=== PATIENT | female | born 1960 | race Caucasian/White ===

== ENCOUNTER 2022-07-06 09:02 | Outpatient (CLI) | payer MEDICAID ==
[2022-07-06 11:41] LABS: BASOPHILS # (AUTO) 0.1 10^3/uL (0.0-0.1); BASOPHILS % (AUTO) 1.4 %; EOSINOPHILS # (AUTO) 0.3 10^3/uL (0.0-0.7); EOSINOPHILS % (AUTO) 3.5 %; HCT - HEMATOCRIT 48.7 % (37.0-47.0); HGB - HEMOGLOBIN 15.5 g/dL (12.0-16.0); LYMPHOCYTES # (AUTO) 3.2 10^3/uL (1.5-3.5); LYMPHOCYTES % (AUTO) 35.4 %; MEAN CORPUSCULAR HEMOGLOBIN 29.5 pg (27.0-31.0); MEAN CORPUSCULAR HGB CONC 31.8 g/dL (32.0-36.0); MEAN CORPUSCULAR VOLUME 92.6 fL (81.0-99.0); MEAN PLATELET VOLUME 11.8 fL (7.9-10.8); MONOCYTES # (AUTO) 0.5 10^3/uL (0.0-1.0); MONOCYTES % (AUTO) 5.6 %; NEUTROPHILS # (AUTO) 4.9 10^3/uL (1.5-6.6); NEUTROPHILS % (AUTO) 53.9 %; PLT - PLATELET COUNT 307 10^3/uL (130-450); RED BLOOD COUNT 5.26 10^6/uL (4.20-5.40); RED CELL DISTRIBUTION WIDTH 14.2 % (12.0-15.0)
[2022-07-06 12:07] LABS: ALBUMIN 3.9 g/dL (3.2-5.5); ALBUMIN/GLOBULIN RATIO 0.9 (1.0-2.2); ALKALINE PHOSPHATASE 72 IU/L (42-121); ALT ALANINE AMINOTRANSFERASE 63 IU/L (10-60); AST ASPARTATE AMINOTRANSFERASE 35 IU/L (10-42); BILIRUBIN,TOTAL 0.6 mg/dL (0.2-1.0); BUN - BLOOD UREA NITROGEN 19 mg/dL (6-20); CALCIUM 9.4 mg/dL (8.5-10.3); CARBON DIOXIDE - CO2 29 mmol/L (21-32); CHLORIDE 103 mmol/L (101-111); CHOL/HDL RATIO 3.7 (<4.4); CHOLESTEROL 255 mg/dL; CREATININE 1.1 mg/dL (0.4-1.0); GFR - MDRD 50 (>89); GLUCOSE 111 mg/dL (70-100); HDL CHOLESTEROL 69 mg/dL; LDL CHOLESTEROL,CALCULATED 158 mg/dL; LDL/HDL RATIO 2.3 (<4.4); POTASSIUM 3.9 mmol/L (3.5-5.0); SODIUM 139 mmol/L (135-145); TOTAL PROTEIN 8.2 g/dL (6.7-8.2); TRIGLYCERIDES 140 mg/dL; VLDL CHOLESTEROL 28 mg/dL
[2022-07-06 12:12] LABS: THYROID STIMULATING HORMONE 1.36 uIU/mL (0.34-5.60)
== END 2022-07-06 09:03 | disposition home or self-care (01) ==
LOC: LAB.N 09:02
PROVIDERS: ATTEND Nurse Practitioner Family
DX: I10 Essential (primary) hypertension (principal)
CPT/HCPCS: 36415; 80050; 80061; 83721

== ENCOUNTER 2024-08-15 21:41 | Inpatient (IN) ==
[2024-08-15 22:13] LABS: BASOPHILS # (AUTO) 0.1 10^3/uL (0.0-0.1); EOSINOPHILS # (AUTO) 0.4 10^3/uL (0.0-0.7); EOSINOPHILS % (AUTO) 3.1 %; HGB - HEMOGLOBIN 14.2 g/dL (12.0-16.0); LYMPHOCYTES # (AUTO) 3.4 10^3/uL (1.5-3.5); LYMPHOCYTES % (AUTO) 25.8 %; MEAN CORPUSCULAR HEMOGLOBIN 28.6 pg (27.0-31.0); MEAN CORPUSCULAR HGB CONC 30.2 g/dL (32.0-36.0); MEAN CORPUSCULAR VOLUME 94.6 fL (81.0-99.0); MEAN PLATELET VOLUME 11.6 fL (7.9-10.8); MONOCYTES # (AUTO) 0.8 10^3/uL (0.0-1.0); MONOCYTES % (AUTO) 5.9 %; NEUTROPHILS # (AUTO) 8.4 10^3/uL (1.5-6.6); NEUTROPHILS % (AUTO) 63.9 %; PLT - PLATELET COUNT 252 10^3/uL (130-450); RED BLOOD COUNT 4.97 10^6/uL (4.20-5.40); RED CELL DISTRIBUTION WIDTH 14.6 % (12.0-15.0); WHITE BLOOD COUNT 13.2 x10^3/uL (4.8-10.8)
--- NOTE | 2024-08-15 22:15 | ED Physician Documentation ---
PD HPI DYSPNEA Stated complaint Stated Complaint: SOA Chief complaint Chief Complaint: Resp Additional information Additional information: BIBA. HPI from EMS, patient. Patient complains of gradual onset of cough, wheezing, dyspnea. Symptoms started earlier this evening without inciting event, constant and steadily worsening. Patient used her albuterol and ipratropium nebs which did not provide adequate relief and thus she called 911. Patient does not use supplemental oxygen at home. Her past medical history includes COPD. EMS arrived to find patient dyspneic and room air pulse ox of 85%. En route to the emergency department EMS administered 125 mg Solu-Medrol IV, 3 albuterol nebs and a duoneb. Also 4mg zofran IV for subsequent nausea. Meds/Allgy Allergies Allergies Allergy/AdvReac Type Severity Reaction Status Date / Time Sulfa (Sulfonamide Allergy Unknown Unknown Verified 08/15/24 21:48 Antibiotics) PFSH Active Problems All Active Problems (Updated 08/15/24 @ 23:13 by Abdirizak Baldwin MD) COPD exacerbation (Acute) Medical History Medical History (Updated 08/15/24 @ 23:13 by Abdirizak Baldwin MD) Hypertension COPD (chronic obstructive pulmonary disease) Surgical History Surgical History (Updated 08/15/24 @ 21:52 by Jaylin Guillory, RN) History of hip replacement History of tonsillectomy History of hysterectomy History of appendectomy Social History Social History (Updated 08/15/24 @ 21:52 by Jaylin Guillory RN) Smoking Status: Current every day smoker Relationship: Do you feel safe in your home environment?: Yes Suffered physical, verbal, emotional, or financial abuse?: No Frequency: Occasional Substance Use: denies use POLST Patient has POLST: No Exam Exam Vital Signs: Vital Signs x48h Temp Pulse Resp BP Pulse Ox O2 Flow Rate 08/15/24 22:53 99 24 96/60 96 4 08/15/24 22:40 89 L 08/15/24 22:22 106 H 32 H 104/61 95 4 08/15/24 22:13 112 H 30 H 93 4 08/15/24 22:12 115 H 34 H 117/81 90 L 2 08/15/24 21:55 2 08/15/24 21:48 115 H 40 H 98 7 08/15/24 21:42 36.7 C 120 H 46 H 169/95 H 85 L Constitutional normal general appearance, distress noted (mild) and (respiratory) and alert Respiratory breath sounds equal bilaterally and wheezing noted (expiratory wheezes) and (inspiratory wheezes) Cardiovascular heart rate abnormal (tachycardic) and regular rhythm noted Gastrointestinal abdomen soft to palpation, nontender to percussion and nondistended Neurology GCS 15 Psychiatry oriented x3, thought process normal, cooperative and affect normal Skin skin color normal Results Vitals Vitals: Vital Signs - 24 hr 08/15/24 21:42 08/15/24 21:48 08/15/24 21:55 Temperature 36.7 C Temperature Source Oral Pulse Rate 120 H 115 H Respiratory Rate 46 H 40 H Blood Pressure 169/95 H O2 Saturation 85 L 98 Oxygen Delivery Method Nasal Cannula O2 Source Room air Oxymizer If not protocol: Oxygen Flow, liters/minute 7 2 Pain Intensity 7 08/15/24 22:12 08/15/24 22:13 08/15/24 22:22 Temperature Temperature Source Pulse Rate 115 H 112 H 106 H Respiratory Rate 34 H 30 H 32 H Blood Pressure 117/81 104/61 O2 Saturation 90 L 93 95 Oxygen Delivery Method O2 Source Nasal cannula Nasal cannula Nasal cannula If not protocol: Oxygen Flow, liters/minute 2 4 4 Pain Intensity 08/15/24 22:40 08/15/24 22:53 Temperature Temperature Source Pulse Rate 99 Respiratory Rate 24 Blood Pressure 96/60 O2 Saturation 89 L 96 Oxygen Delivery Method O2 Source Nasal cannula If not protocol: Oxygen Flow, liters/minute 4 Pain Intensity Oxygen O2 Source Nasal cannula EKG (time done) 21:43: EKG releavant findings:: EKG personally interpreted by author of this note. Relevant findings are: Rate: Rate (enter#) (115) and Tachy Rhythm: Sinus tachycardia and Normal P waves Mylo: RAD Intervals: Normal NC QRS: QRS normal Ischemia: Normal ST segments Labs Labs: Laboratory Tests 08/15/24 22:08 WBC 13.2 H RBC 4.97 Hgb 14.2 Hct 47.0 MCV 94.6 MCH 28.6 MCHC 30.2 L RDW 14.6 Plt Count 252 MPV 11.6 H Neut # (Auto) 8.4 H Lymph # (Auto) 3.4 [place] # (Auto) 0.8 Eos # (Auto) 0.4 Baso # (Auto) 0.1 Absolute Nucleated RBC 0.00 Nucleated RBC % 0.0 Sodium 139 Potassium 3.5 Chloride 106 Carbon Dioxide 24 Anion Gap 9.0 BUN 13 Creatinine 0.9 Estimated GFR (MDRD) 63 L Glucose 143 H Calcium 8.7 Total Bilirubin 0.4 AST 25 ALT 38 Alkaline Phosphatase 75 Troponin I High Sens 4.7 Total Protein 7.3 Albumin 4.1 Globulin 3.2 Albumin/Globulin Ratio 1.3 Lipase 21 Rads (name of study) chest xray: Relevant Findings:: Prelim report reviewed and See rad report PD Medical Decision Making ED course Complexity details: reviewed results, re-evaluated patient, considered differential and d/w patient ED course: No concerning findings on CBC, ER abdominal panel. High-sensitivity troponin is normal, and there are no acute cardiopulmonary findings on chest x-ray. Patient continued to have inspiratory and expiratory wheezing on serial exams during ED stay and had 3-4 L/minute supplemental oxygen (NC) requirement to maintain oxygen saturations above 90%. On two separate occasions late in ED stay, I was in the room and I turned off the oxygen and observed her pulse ox dropped to 89% with a good correlating pleth which also correlated with patient exhibiting mildly worsening dyspnea, and thus I turned the oxygen back to 4 L/min flow. D/W telehealth practitioner desktop support consultant who accepts admit to [facility]. Discharge Plan Discharge Patient Disposition: [facility] DC/Xfer Condition: Good Clinical Impression: COPD exacerbation
[2024-08-15 22:28] LABS: ALBUMIN 4.1 g/dL (3.2-5.5); ALBUMIN/GLOBULIN RATIO 1.3 (1.0-2.2); BILIRUBIN,TOTAL 0.4 mg/dL (0.2-1.0); CALCIUM 8.7 mg/dL (8.5-10.3); CREATININE 0.9 mg/dL (0.6-1.3); POTASSIUM 3.5 mmol/L (3.5-4.5); TOTAL PROTEIN 7.3 g/dL (6.4-8.9)
--- NOTE | 2024-08-15 22:28 | XRAY Report ---
PROCEDURE: XR Chest 1V INDICATIONS: Chest pain TECHNIQUE: One view of the chest was acquired. COMPARISON: None. FINDINGS: Surgical changes and devices: None. Lungs and pleura: No pleural effusions or pneumothorax. No consolidation. Mediastinum: Mediastinal contours appear normal. Heart size is normal. Bones and chest wall: No suspicious bony lesions. Overlying soft tissues appear unremarkable. IMPRESSION: No acute cardiopulmonary process. Reviewed by: Kris Lebron MD on 08/15/2024 9:27 PM [facility] Approved by: Kris Lebron MD on 08/15/2024 9:27 PM AKDT Station ID: [id number]
[2024-08-15 22:35] LABS: TROPONIN I HIGH SENSITIVITY 4.7 ng/L (2.3-14.8)
[2024-08-15] MEDS: BENZONATATE 100 MG CAPSULE PO STA (22:55)
--- OUTSIDE RECORDS SUMMARY | 2024-08-15 22:55 | EXTERNAL MEDICAL SUMMARY RPT | Continuity of Care Document ---
Author Organization [facility] Address [address] [place] [id number] Phone Results/Labs test date facility value unit notes Result panel 1 NUCLEATED RED BLOOD CELLS AUTO 2024-08-15 22:08 [facility] 0.0 /100wbc (missing) NRBC ABSOLUTE COUNT (AUTO) 2024-08-15 22:08 [facility] 0.00 x10 3/ul (missing) BASOPHILS # (AUTO) 2024-08-15 22:08 [facility] 0.1 10 3/ul (missing) EOSINOPHILS # (AUTO) 2024-08-15 22:08 [facility] 0.4 10 3/ul (missing) BILIRUBIN,TOTAL 2024-08-15 22:08 [facility] 0.4 mg/dl As of September 2022 testing method has changed, this may include reference ranges. MONOCYTES # (AUTO) 2024-08-15 22:08 [facility] 0.8 10 3/ul (missing) CREATININE 2024-08-15 22:08 [facility] 0.9 mg/dl As of September 2022 testing method has changed, this may include reference ranges. ALBUMIN/GLOBULIN RATIO 2024-08-15 22:08 [facility] 1.3 (missing) (missing) CHLORIDE 2024-08-15 22:08 [facility] 106 mmol/l As of September 2022 testing method has changed, this may include reference ranges. MEAN PLATELET VOLUME 2024-08-15 22:08 [facility] 11.6 fl (missing) BUN - BLOOD UREA NITROGEN 2024-08-15 22:08 [facility] 13 mg/dl As of September 2022 testing method has changed, this may include reference ranges. WHITE BLOOD COUNT 2024-08-15 22:08 [facility] 13.2 x10 3/ul (missing) SODIUM 2024-08-15 22:08 [facility] 139 mmol/l (missing) HGB - HEMOGLOBIN 2024-08-15 22:08 [facility] 14.2 g/dl (missing) RED CELL DISTRIBUTION WIDTH 2024-08-15 22:08 [facility] 14.6 % (missing) GLUCOSE 2024-08-15 22:08 [facility] 143 mg/dl As of September 2022 testing method has changed, this may include reference ranges. LIPASE 2024-08-15 22:08 [facility] 21 u/l As of September 2022 testing method has changed, this may include reference ranges. CARBON DIOXIDE - CO2 2024-08-15 22:08 [facility] 24 mmol/l As of September 2022 testing method has changed, this may include reference ranges. AST ASPARTATE AMINOTRANSFERASE 2024-08-15 22:08 [facility] 25 iu/l As of September 2022 testing method has changed, this may include reference ranges. PLT - PLATELET COUNT 2024-08-15 22:08 [facility] 252 10 3/ul (missing) MEAN CORPUSCULAR HEMOGLOBIN 2024-08-15 22:08 [facility] 28.6 pg (missing) GLOBULIN 2024-08-15 22:08 [facility] 3.2 g/dl (missing) LYMPHOCYTES # (AUTO) 2024-08-15 22:08 [facility] 3.4 10 3/ul (missing) POTASSIUM 2024-08-15 22:08 [facility] 3.5 mmol/l As of September 2022 testing method has changed, this may include reference ranges. MEAN CORPUSCULAR HGB CONC 2024-08-15 22:08 [facility] 30.2 g/dl (missing) ALT ALANINE AMINOTRANSFERASE 2024-08-15 22:08 [facility] 38 iu/l As of September 2022 testing method has changed, this may include reference ranges. ALBUMIN 2024-08-15 22:08 [facility] 4.1 g/dl As of September 2022 testing method has changed, this may include reference ranges. TROPONIN I HIGH SENSITIVITY 2024-08-15 22:08 [facility] 4.7 ng/l A HIGH SENSITIVITY TROPONIN result of >= 14.9 ng/L for females is considered POSITIVE. A HIGH SENSITIVITY TROPONIN result of >= 19.8 ng/L for males is considered POSITIVE. A HIGH SENSITIVITY TROPONIN result of >= 17.9 ng/L for unspecified is considered POSITIVE. RED BLOOD COUNT 2024-08-15 22:08 [facility] 4.97 10 6/ul (missing) HCT - HEMATOCRIT 2024-08-15 22:08 [facility] 47.0 % (missing) GFR - MDRD 2024-08-15 22:08 [facility] 63 (missing) Social History date description facility
--- OUTSIDE RECORDS SUMMARY | 2024-08-15 23:18 | EXTERNAL MEDICAL SUMMARY RPT | Continuity of Care Document ---
Author Organization [facility] Address [address] [place] [phone] Phone Results/Labs test date facility value unit notes Result panel 1 NUCLEATED RED BLOOD CELLS AUTO 2024-08-15 22:08 [facility] 0.0 /100wbc (missing) NRBC ABSOLUTE COUNT (AUTO) 2024-08-15 22:08 [facility] 0.00 x10 3/ul (missing) BASOPHILS # (AUTO) 2024-08-15 22:08 [facility] 0.1 10 3/ul (missing) EOSINOPHILS # (AUTO) 2024-08-15 22:08 [facility] 0.4 10 3/ul (missing) BILIRUBIN,TOTAL 2024-08-15 22:[facility] 0.4 mg/dl As of September 2022 testing method has changed, this may include reference ranges. MONOCYTES # (AUTO) 2024-08-15 22:[facility] 0.8 10 3/ul (missing) CREATININE 2024-08-15 22:[facility] 0.9 mg/dl As of September 2022 testing method has changed, this may include reference ranges. ALBUMIN/GLOBULIN RATIO 2024-08-15 22:[facility] 1.3 (missing) (missing) CHLORIDE 2024-08-15 22:[facility] 106 mmol/l As of September 2022 testing method has changed, this may include reference ranges. MEAN PLATELET VOLUME 2024-08-15 22:[facility] 11.6 fl (missing) BUN - BLOOD UREA NITROGEN 2024-08-15 22:[facility] 13 mg/dl As of September 2022 testing method has changed, this may include reference ranges. WHITE BLOOD COUNT 2024-08-15 22[facility] 13.2 x10 3/ul (missing) SODIUM 2024-08-15 22:08 [facility] 139 mmol/l (missing) HGB - HEMOGLOBIN 2024-08-15 22:08 [facility] 14.2 g/dl (missing) RED CELL DISTRIBUTION WIDTH 2024-08-15 22:08 [facility] 14.6 % (missing) GLUCOSE 2024-08-15 22:08 [facility] 143 mg/dl As of September 2022 testing method has changed, this may include reference ranges. LIPASE 2024-08-15 22:08 [facility] 21 u/l As of September 2022 testing method has changed, this may include reference ranges. CARBON DIOXIDE - CO2 2024-08-15 22:08 [facility] 24 mmol/l As of September 2022 testing method has changed, this may include reference ranges. AST ASPARTATE AMINOTRANSFERASE 2024-08-15 22:08 [facility] 25 iu/l As of September 2022 testing method has changed, this may include reference ranges. PLT - PLATELET COUNT 2024-08-15 22:08 [facility] 252 10 3/ul (missing) MEAN CORPUSCULAR HEMOGLOBIN 2024-08-15 22:08 [facility] 28.6 pg (missing) GLOBULIN 2024-08-15 22:08 [facility] 3.2 g/dl (missing) LYMPHOCYTES # (AUTO) 2024-08-15 22:08 [facility] 3.4 10 3/ul (missing) POTASSIUM 2024-08-15 22:08 [facility] 3.5 mmol/l As of September 2022 testing method has changed, this may include reference ranges. MEAN CORPUSCULAR HGB CONC 2024-08-15 22:08 [facility] 30.2 g/dl (missing) ALT ALANINE AMINOTRANSFERASE 2024-08-15 22:08 [facility] 38 iu/l As of September 2022 testing method has changed, this may include reference ranges. ALBUMIN 2024-08-15 22:08 [facility] 4.1 g/dl As of September 2022 testing method has changed, this may include reference ranges. TROPONIN I HIGH SENSITIVITY 2024-08-15 22:08 [facility] 4.7 ng/l A HIGH SENSITIVITY TROPONIN result of >= 14.9 ng/L for females is considered POSITIVE. A HIGH SENSITIVITY TROPONIN result of >= 19.8 ng/L for males is considered POSITIVE. A HIGH SENSITIVITY TROPONIN result of >= 17.9 ng/L for unspecified is considered POSITIVE. RED BLOOD COUNT 2024-08-15 22:08 [facility] 4.97 10 6/ul (missing) HCT - HEMATOCRIT 2024-08-15 22:08 [facility] 47.0 % (missing) GFR - MDRD 2024-08-15 22:08 [facility] 63 (missing) Social History date description facility
[2024-08-15] MEDS: methylPREDNISolone SUCCINATE 40 MG/ML VIAL IVP SCH (23:23)
--- NOTE | 2024-08-15 23:31 | HISTORY & PHYSICAL EXAMINATION ---
Chief Complaint Chief Complaint Chief Complaint: SOB History of Present Illness History of Present Illness HPI Comment/Other: 64 Y old female with PMH HTN, GERD, COPD, TObbaco abuse BIBA due to SOB for 2 days. C/O cough with sputum, wheezing. Denies fever, chest pain, SMALL, abdominal pain, nausea, vomiting, diarrhea, constipation, symptoms Pt was given IV solumedrol,, nebs by EMS CXR showed no acute findings Pt is admitted due to Acute hypoxic respiratory failure due to COPD exacerbation Review of Systems Status of ROS: 10 or more systems reviewed and unremarkable except as noted in history and below PFSH Active Problems All Active Problems (Updated 08/15/24 @ 23:13 by Abdirizak Baldwin MD) COPD exacerbation (Acute) Medical History Medical History (Updated 08/15/24 @ 23:13 by Abdirizak Baldwin MD) Hypertension COPD (chronic obstructive pulmonary disease) Surgical History Surgical History (Updated 08/15/24 @ 21:52 by Jaylin Guillory, RN) History of hip replacement History of tonsillectomy History of hysterectomy History of appendectomy Social History Social History (Updated 08/15/24 @ 21:52 by Jaylin Guillory, RN) Smoking Status: Current every day smoker Relationship: Do you feel safe in your home environment?: Yes Suffered physical, verbal, emotional, or financial abuse?: No Frequency: Occasional Substance Use: denies use POLST Patient has POLST: No Meds/Allgy Allergies Allergies Allergy/AdvReac Type Severity Reaction Status Date / Time Sulfa (Sulfonamide Allergy Unknown Unknown Verified 08/15/24 21:48 Antibiotics) Exam Exam Vital Signs: Vital Signs x48h Temp Pulse Resp BP Pulse Ox O2 Flow Rate 08/15/24 22:53 99 24 96/60 96 4 08/15/24 22:40 89 L 08/15/24 22:22 106 H 32 H 104/61 95 4 08/15/24 22:13 112 H 30 H 93 4 08/15/24 22:12 115 H 34 H 117/81 90 L 2 08/15/24 21:55 2 08/15/24 21:48 115 H 40 H 98 7 08/15/24 21:42 36.7 C 120 H 46 H 169/95 H 85 L Constitutional normal general appearance HENMT normocephalic Eyes PERRL Chest inspection of chest normal Respiratory B/L ronchi Gastrointestinal abdomen normal to inspection Extremities normal to inspection Neurology no focal motor deficit noted Skin no rash Conclusion/Plan Problem List (1) COPD exacerbation: Plan: A: Acute hypoxic respiratory failure COPD exacerbation Leukocytosis HTN GERD Tobacco abuse Plan: Admit to med surg with tele Start solumedrol 40 mg iv q6h Duo nebs q6h Zithromax iv singulair 10 mg po qd cont home meds DVT prophylaxic: SCD Full code Pt is admitted as inpatient as more than 2 midnight stay is expected Lab Results 08/15/24 22:08 08/15/24 22:08
[2024-08-15] MEDS ORDERED: SODIUM CHLORIDE FLUSH 0.9% 10 ML SYRINGE IVP PRN (23:36)
[2024-08-15] MEDS: ACETAMINOPHEN 325 MG TABLET PO PRN (23:51)
[2024-08-15 23:55] LABS: B. PARAPERTUSSIS- RESP PCR PAN NOT DETECTED; B. PERTUSSIS- RESP PCR PANEL NOT DETECTED; C. PNEUMONIAE- RESP PCR PANEL NOT DETECTED; CORONAVIRUS 229E-RESP PCR NOT DETECTED; CORONAVIRUS HKU1-RESP PCR NOT DETECTED; CORONAVIRUS NL63-RESP PCR NOT DETECTED; CORONAVIRUS OC43-RESP PCR NOT DETECTED; HUMAN METAPNEUMOVIRUS NOT DETECTED; INFLUENZA A- RESP PCR PANEL NOT DETECTED; INFLUENZA B - RESP PCR PANEL NOT DETECTED; M. PNEUMONIAE- RESP PCR PANEL NOT DETECTED; PARAINFLUENZA VIRUS 1 NOT DETECTED; PARAINFLUENZA VIRUS 2 NOT DETECTED; PARAINFLUENZA VIRUS 4 NOT DETECTED; RHINOVIRUS/ENTEROVIRUS NOT DETECTED; RSV- RESP PCR PANEL NOT DETECTED; SARS-CoV-2 -RESP PCR PANEL NOT DETECTED
[2024-08-16] MEDS: AZITHROMYCIN INJ 500 MG in SODIUM CHLORIDE 0.9% 250 ML IV SCH (00:16)
[2024-08-16] MEDS: MONTELUKAST 10 MG TABLET PO SCH (00:16)
[2024-08-16] MEDS: IPRATROPIUM/ALBUTEROL 3 ML NEB INH SCH ×2 (00:27→01:24)
[2024-08-16] MEDS: SODIUM CHLORIDE FLUSH 0.9% 10 ML SYRINGE IVP SCH (00:27)
[2024-08-16] MEDS: guaiFENesin/DEXTROMETHORPHAN 10 ML UDC PO PRN (00:41)
[2024-08-16] MEDS: IPRATROPIUM/ALBUTEROL 3 ML NEB INH PRN (04:33)
[2024-08-16] MEDS: hydrOXYzine PAMOATE 25 MG CAPSULE PO PRN (07:51)
[2024-08-16] MEDS: ENOXAPARIN 40 MG/0.4 ML SYRINGE SUBQ SCH (08:03)
[2024-08-16] MEDS: NICOTINE 21 MG PATCH TOP SCH (08:04)
[2024-08-16] MEDS: guaiFENesin 600 MG TABLET PO SCH ×2 (09:49→21:06)
--- NOTE | 2024-08-16 12:37 | PROVIDER PROGRESS NOTE ---
Assessment/Plan Problem List (1) COPD exacerbation: Assessment/Plan: * Cont solumedrol 40 mg iv q6h * Cont Duo nebs q6h Zithromax iv singulair 10 mg po qd cont home meds Current Meds Current Meds: Current Medications Generic Name Dose Route Start Last Admin Trade Name Freq PRN Reason Stop Dose Admin Acetaminophen 650 mg 08/15/24 23:36 08/15/24 23:51 Acetaminophen 325 Mg Tablet PO 650 mg Q4HR PRN Administration Pain 1 to 4, or Fever Albuterol/Ipratropium 3 ml 08/16/24 00:34 08/16/24 04:33 Ipratropium/Albuterol 3 Ml Neb INH 3 ml RTQ4H PRN Administration Wheezing Albuterol/Ipratropium 3 ml 08/16/24 01:00 08/16/24 07:32 Ipratropium/Albuterol 3 Ml Neb INH 3 ml RTQ6H MOLLY Administration Enoxaparin Sodium 40 mg 08/16/24 09:00 08/16/24 08:03 Enoxaparin 40 Mg/0.4 Ml Syringe SUBQ 40 mg DAILY MOLLY Administration Guaifenesin 10 ml 08/16/24 00:35 08/16/24 07:51 Guaifenesin/Dextromethorphan 10 Ml Udc PO 08/16/24 20:59 10 ml Q6HR PRN Administration Cough Guaifenesin 1,200 mg 08/16/24 21:00 Guaifenesin 600 Mg Tablet PO BID MOLLY Hydroxyzine Pamoate 25 mg 08/16/24 07:37 08/16/24 07:51 Hydroxyzine Pamoate 25 Mg Capsule PO 25 mg TID PRN Administration Anxiety Azithromycin 500 mg/ Sodium 250 mls @ 250 mls/hr 08/16/24 00:30 08/16/24 01:16 Chloride IV Infused Q24H MOLLY Infusion Methylprednisolone 40 mg 08/15/24 23:45 08/16/24 11:10 Methylprednisolone Succinate 40 Mg/Ml Vial IVP 40 mg Q6H MOLLY Administration Montelukast Sodium 10 mg 08/16/24 00:30 08/16/24 00:16 Montelukast 10 Mg Tablet PO 10 mg QPM MOLLY Administration Nicotine 1 patch 08/16/24 09:00 08/16/24 08:04 Nicotine 21 Mg Patch TOP 1 patch DAILY MOLLY Administration Ondansetron HCl 4 mg 08/15/24 23:36 Ondansetron 4 Mg/2 Ml Vial IVP Q6HR PRN Nausea / Vomiting Sodium Chloride 10 ml 08/15/24 23:36 Sodium Chloride Flush 0.9% 10 Ml Syringe IVP PRN PRN NEEDED PER PROVIDER ORDERS Sodium Chloride 10 ml 08/16/24 01:00 08/16/24 08:04 Sodium Chloride Flush 0.9% 10 Ml Syringe IVP 10 ml 0100,0900,1700 MOLLY Administration Lab Result Lab results reviewed: Yes 08/15/24 22:08 08/15/24 22:08 Additional Planning Condition/Complexity: Stable My Orders: My Active Orders 08/16/24 07:37 hydrOXYzine PAMOATE [VistariL] 25 mg PO TID PRN 08/16/24 09:00 Nicotine 21 mg Patch [Nicoderm] 1 patch TOP DAILY 08/16/24 21:00 guaiFENesin [Mucinex] 1,200 mg PO BID 08/17/24 05:00 BMP - BASIC METABOLIC PANEL [CHEM] DAILYLAB CBC [CBC - COMP BLD CT W/AUTO DIFF] [HEME] DAILYLAB 08/18/24 05:00 BMP - BASIC METABOLIC PANEL [CHEM] DAILYLAB CBC [CBC - COMP BLD CT W/AUTO DIFF] [HEME] DAILYLAB 08/19/24 05:00 BMP - BASIC METABOLIC PANEL [CHEM] DAILYLAB CBC [CBC - COMP BLD CT W/AUTO DIFF] [HEME] DAILYLAB Objective Vital Signs: Vital Signs - 24 hr 08/15/24 21:42 08/15/24 21:48 08/15/24 21:55 Temperature 36.7 C Temperature Source Oral Pulse Rate 120 H 115 H Pulse Rate [Brachial] Respiratory Rate 46 H 40 H Blood Pressure 169/95 H Blood Pressure [Left Brachial artery] Blood Pressure [Right Brachial artery] O2 Saturation 85 L 98 Oxygen Delivery Method Nasal Cannula O2 Source Room air Oxymizer If not protocol: Oxygen Flow, liters/minute 7 2 Sedation scale Pain Intensity 7 Pain Intensity [Abdomen] 08/15/24 22:12 08/15/24 22:13 08/15/24 22:22 Temperature Temperature Source Pulse Rate 115 H 112 H 106 H Pulse Rate [Brachial] Respiratory Rate 34 H 30 H 32 H Blood Pressure 117/81 104/61 Blood Pressure [Left Brachial artery] Blood Pressure [Right Brachial artery] O2 Saturation 90 L 93 95 Oxygen Delivery Method O2 Source Nasal cannula Nasal cannula Nasal cannula If not protocol: Oxygen Flow, liters/minute 2 4 4 Sedation scale Pain Intensity Pain Intensity [Abdomen] 08/15/24 22:40 08/15/24 22:53 08/15/24 23:25 Temperature Temperature Source Pulse Rate 99 103 H Pulse Rate [Brachial] Respiratory Rate 24 24 Blood Pressure 96/60 102/68 Blood Pressure [Left Brachial artery] Blood Pressure [Right Brachial artery] O2 Saturation 89 L 96 96 Oxygen Delivery Method O2 Source Nasal cannula Nasal cannula If not protocol: Oxygen Flow, liters/minute 4 4 Sedation scale Pain Intensity Pain Intensity [Abdomen] 08/15/24 23:51 08/16/24 00:00 08/16/24 00:27 Temperature 36.7 C Temperature Source Skin Pulse Rate 104 H Pulse Rate [Brachial] 103 H Respiratory Rate 22 28 H Blood Pressure Blood Pressure [Left Brachial artery] 117/71 Blood Pressure [Right Brachial artery] O2 Saturation 94 Oxygen Delivery Method O2 Source Nasal cannula Nasal cannula If not protocol: Oxygen Flow, liters/minute 4 4 Sedation scale 0-Fully awake Pain Intensity 6 Pain Intensity [Abdomen] 08/16/24 00:27 08/16/24 01:30 08/16/24 04:00 Temperature Temperature Source Pulse Rate Pulse Rate [Brachial] Respiratory Rate Blood Pressure Blood Pressure [Left Brachial artery] Blood Pressure [Right Brachial artery] O2 Saturation Oxygen Delivery Method O2 Source If not protocol: Oxygen Flow, liters/minute 4 Sedation scale Pain Intensity 6 Pain Intensity [Abdomen] 6 08/16/24 04:33 08/16/24 04:49 08/16/24 07:32 Temperature 36.6 C Temperature Source Skin Pulse Rate 92 102 H Pulse Rate [Brachial] 98 Respiratory Rate 24 24 20 Blood Pressure Blood Pressure [Left Brachial artery] Blood Pressure [Right Brachial artery] 112/70 O2 Saturation 95 Oxygen Delivery Method O2 Source Nasal cannula Nasal cannula Nasal cannula If not protocol: Oxygen Flow, liters/minute 4 4 3 Sedation scale 0-Fully awake Pain Intensity Pain Intensity [Abdomen] 08/16/24 07:38 08/16/24 08:35 08/16/24 12:19 Temperature 36.6 C 36.6 C Temperature Source Temporal Artery Scan Temporal Artery Scan Pulse Rate Pulse Rate [Brachial] 101 H 95 Respiratory Rate 20 20 Blood Pressure Blood Pressure [Left Brachial artery] Blood Pressure [Right Brachial artery] 95/64 149/80 H O2 Saturation 95 97 Oxygen Delivery Method O2 Source Nasal cannula Nasal cannula If not protocol: Oxygen Flow, liters/minute 3 3 3 Sedation scale 0-Fully awake 0-Fully awake Pain Intensity Pain Intensity [Abdomen] Oxygen O2 Source Nasal cannula I&O (Last 24 Hrs): Intake and Output Totals x24h 08/14/24 08/15/24 08/16/24 23:59 23:59 23:59 Intake Total 490 / 490 Balance 490 / 490 General: Alert, Oriented x3 and No acute distress HEENT: Atraumatic and EOMI Neuro: Alert, Non Focal and CN 2-12 Grossly Intact Cardiovascular: Regular rate, Normal S1, Normal S2 and No murmurs Respiratory: No respiratory distress and Breath sounds nml Abdomen: Normal bowel sounds, Soft, No tenderness and No masses Extremities: No clubbing, No cyanosis and No edema Results Results: Laboratory Results WBC 13.2 x10^3/uL (4.8-10.8) H 08/15/24 22:08 RBC 4.97 10^6/uL (4.20-5.40) 08/15/24 22:08 Hgb 14.2 g/dL (12.0-16.0) 08/15/24 22:08 Hct 47.0 % (37.0-47.0) 08/15/24 22:08 MCV 94.6 fL (81.0-99.0) 08/15/24 22:08 MCH 28.6 pg (27.0-31.0) 08/15/24 22:08 MCHC 30.2 g/dL (32.0-36.0) L 08/15/24 22:08 RDW 14.6 % (12.0-15.0) 08/15/24 22:08 Plt Count 252 10^3/uL (130-450) 08/15/24 22:08 MPV 11.6 fL (7.9-10.8) H 08/15/24 22:08 Neut # (Auto) 8.4 10^3/uL (1.5-6.6) H 08/15/24 22:08 Lymph # (Auto) 3.4 10^3/uL (1.5-3.5) 08/15/24 22:08 [place] # (Auto) 0.8 10^3/uL (0.0-1.0) 08/15/24 22:08 Eos # (Auto) 0.4 10^3/uL (0.0-0.7) 08/15/24 22:08 Baso # (Auto) 0.1 10^3/uL (0.0-0.1) 08/15/24 22:08 Absolute Nucleated RBC 0.00 x10^3/uL 08/15/24 22:08 Nucleated RBC % 0.0 /100WBC 08/15/24 22:08 Sodium 139 mmol/L (135-145) 08/15/24 22:08 Potassium 3.5 mmol/L (3.5-4.5) 08/15/24 22:08 Chloride 106 mmol/L (101-111) 08/15/24 22:08 Carbon Dioxide 24 mmol/L (21-32) 08/15/24 22:08 Anion Gap 9.0 (6-13) 08/15/24 22:08 BUN 13 mg/dL (6-20) 08/15/24 22:08 Creatinine 0.9 mg/dL (0.6-1.3) 08/15/24 22:08 Estimated GFR (MDRD) 63 (>89) L 08/15/24 22:08 Glucose 143 mg/dL (74-104) H 08/15/24 22:08 Calcium 8.7 mg/dL (8.5-10.3) 08/15/24 22:08 Total Bilirubin 0.4 mg/dL (0.2-1.0) 08/15/24 22:08 AST 25 IU/L (10-42) 08/15/24 22:08 ALT 38 IU/L (10-60) 08/15/24 22:08 Alkaline Phosphatase 75 IU/L (42-121) 08/15/24 22:08 Troponin I High Sens 4.7 ng/L (2.3-14.8) 08/15/24 22:08 Total Protein 7.3 g/dL (6.4-8.9) 08/15/24 22:08 Albumin 4.1 g/dL (3.2-5.5) 08/15/24 22:08 Globulin 3.2 g/dL (2.1-4.2) 08/15/24 22:08 Albumin/Globulin Ratio 1.3 (1.0-2.2) 08/15/24 22:08 Lipase 21 U/L (11-82) 08/15/24 22:08 Nasal Adenovirus (PCR) NOT DETECTED 08/15/24 22:34 Nasal B. parapertussis DNA (PCR) NOT DETECTED 08/15/24 22:34 Nasal Coronavir 229E PCR NOT DETECTED 08/15/24 22:34 Nasal Coronavir HKU1 PCR NOT DETECTED 08/15/24 22:34 Nasal Coronavir NL63 PCR NOT DETECTED 08/15/24 22:34 Nasal Coronavir OC43 PCR NOT DETECTED 08/15/24 22:34 Nasal Enterovir/Rhinovir PCR NOT DETECTED 08/15/24 22:34 Nasal Influenza B PCR NOT DETECTED 08/15/24 22:34 Nasal Influenza A PCR NOT DETECTED 08/15/24 22:34 Nasal Parainfluen 1 PCR NOT DETECTED 08/15/24 22:34 Nasal Parainfluen 2 PCR NOT DETECTED 08/15/24 22:34 Nasal Parainfluen 3 PCR NOT DETECTED 08/15/24 22:34 Nasal Parainfluen 4 PCR NOT DETECTED 08/15/24 22:34 Nasal RSV (PCR) NOT DETECTED 08/15/24 22:34 Nasal B.pertussis DNA PCR NOT DETECTED 08/15/24 22:34 Nasal C.pneumoniae (PCR) NOT DETECTED 08/15/24 22:34 [place] Human Metapneumo PCR NOT DETECTED 08/15/24 22:34 Nasal M.pneumoniae (PCR) NOT DETECTED 08/15/24 22:34 Nasal SARS-CoV-2 (PCR) NOT DETECTED 08/15/24 22:34 ABX Reporting Has patient been on IV antibiotics over the past 48 hours?: Yes Current Medications Current Medications Current Medications: Current Medications Generic Name Dose Route Start Last Admin Trade Name Freq PRN Reason Stop Dose Admin Acetaminophen 650 mg 08/15/24 23:36 08/15/24 23:51 Acetaminophen 325 Mg Tablet PO 650 mg Q4HR PRN Administration Pain 1 to 4, or Fever Albuterol/Ipratropium 3 ml 08/16/24 00:34 08/16/24 04:33 Ipratropium/Albuterol 3 Ml Neb INH 3 ml RTQ4H PRN Administration Wheezing Albuterol/Ipratropium 3 ml 08/16/24 01:00 08/16/24 07:32 Ipratropium/Albuterol 3 Ml Neb INH 3 ml RTQ6H MOLLY Administration Enoxaparin Sodium 40 mg 08/16/24 09:00 08/16/24 08:03 Enoxaparin 40 Mg/0.4 Ml Syringe SUBQ 40 mg DAILY MOLLY Administration Guaifenesin 10 ml 08/16/24 00:35 08/16/24 07:51 Guaifenesin/Dextromethorphan 10 Ml Udc PO 08/16/24 20:59 10 ml Q6HR PRN Administration Cough Guaifenesin 1,200 mg 08/16/24 21:00 Guaifenesin 600 Mg Tablet PO BID MOLLY Hydroxyzine Pamoate 25 mg 08/16/24 07:37 08/16/24 07:51 Hydroxyzine Pamoate 25 Mg Capsule PO 25 mg TID PRN Administration Anxiety Azithromycin 500 mg/ Sodium 250 mls @ 250 mls/hr 08/16/24 00:30 08/16/24 01:16 Chloride IV Infused Q24H MOLLY Infusion Methylprednisolone 40 mg 08/15/24 23:45 08/16/24 11:10 Methylprednisolone Succinate 40 Mg/Ml Vial IVP 40 mg Q6H MOLLY Administration Montelukast Sodium 10 mg 08/16/24 00:30 08/16/24 00:16 Montelukast 10 Mg Tablet PO 10 mg QPM MOLLY Administration Nicotine 1 patch 08/16/24 09:00 08/16/24 08:04 Nicotine 21 Mg Patch TOP 1 patch DAILY MOLLY Administration Ondansetron HCl 4 mg 08/15/24 23:36 Ondansetron 4 Mg/2 Ml Vial IVP Q6HR PRN Nausea / Vomiting Sodium Chloride 10 ml 08/15/24 23:36 Sodium Chloride Flush 0.9% 10 Ml Syringe IVP PRN PRN NEEDED PER PROVIDER ORDERS Sodium Chloride 10 ml 08/16/24 01:00 08/16/24 08:04 Sodium Chloride Flush 0.9% 10 Ml Syringe IVP 10 ml 0100,0900,1700 MOLLY Administration
--- NOTE | 2024-08-16 17:17 | PHARMACY PROGRESS NOTE ---
Best Possible Medication History Admit Date and Time: 08/15/24 2301 Home Medications Medication Instructions Recorded Confirmed Type albuterol sulfate 90 mcg/actuation 2 puff inhalation Q 4H PRN wheezing 08/16/24 08/16/24 History aerosol inhaler amlodipine 10 mg tablet 10 mg PO DAILY 08/16/24 06/07/26 History estradiol 1 mg tablet 1 mg PO DAILY PRN anxiety 08/16/24 History fluticasone 250 mcg-salmeterol 50 1 inh inhalation BID 08/16/24 08/16/24 History mcg/dose blistr powdr for inhalation ipratropium 0.5 mg-albuterol 3 mg 3 ml inhalation .COM PLEX 08/16/24 08/16/24 History (2.5 mg base)/3 mL nebulization soln omeprazole 40 mg capsule,delayed 40 mg PO QDAC 5 08/16/24 History release Processed by: Pharmacy Medications reviewed in ED?: No Medication History completed: Yes Patient Interview: Completed Secondary Source(s): Pharmacy records [facility] Statement: As the person ultimately responsible for medication therapy, providers are able to order a medication from an existing home medication list in [facility] via the "Reconcile Routine" prior to Confirmation of that medication by application support. Such practice is discouraged except when the physician, in their clinical judgment, deems that a medical need exists for a medication without regard to previous use.
[2024-08-16] MEDS: polyethylene glycoL 3350 17 GM PACKET PO PRN (18:16)
[2024-08-16] MEDS: ONDANSETRON 4 MG/2 ML VIAL IVP PRN (19:56)
[2024-08-17 04:49] LABS: BASOPHILS % (AUTO) 0.2 %; HCT - HEMATOCRIT 41.4 % (37.0-47.0); HGB - HEMOGLOBIN 13.2 g/dL (12.0-16.0); LYMPHOCYTES % (AUTO) 5.5 %; MEAN CORPUSCULAR HEMOGLOBIN 29.6 pg (27.0-31.0); MEAN CORPUSCULAR HGB CONC 31.9 g/dL (32.0-36.0); MEAN CORPUSCULAR VOLUME 92.8 fL (81.0-99.0); MEAN PLATELET VOLUME 11.6 fL (7.9-10.8); MONOCYTES # (AUTO) 0.8 10^3/uL (0.0-1.0); MONOCYTES % (AUTO) 4.7 %; NEUTROPHILS # (AUTO) 15.9 10^3/uL (1.5-6.6); NEUTROPHILS % (AUTO) 88.5 %; PLT - PLATELET COUNT 282 10^3/uL (130-450); RED BLOOD COUNT 4.46 10^6/uL (4.20-5.40); RED CELL DISTRIBUTION WIDTH 15.2 % (12.0-15.0)
[2024-08-17 05:06] LABS: CALCIUM 9.3 mg/dL (8.5-10.3); CREATININE 0.9 mg/dL (0.6-1.3); POTASSIUM 4.7 mmol/L (3.5-4.5)
[2024-08-17] MEDS: polyethylene glycoL 3350 17 GM PACKET PO SCH (08:09)
[2024-08-17] MEDS ORDERED: ALBUTEROL NEB 2.5 MG/3 ML INH PRN (08:16)
[2024-08-17] MEDS: IPRATROPIUM/ALBUTEROL 3 ML NEB INH SCH (10:39)
--- NOTE | 2024-08-17 17:26 | PROVIDER PROGRESS NOTE ---
Subjective Prog Note Date Prog Note Date: 08/17/24 Prog Note Time: 17:22 Subjective Pt reports feeling: Improved Subjective: Patient states she is not feeling very well. She is off oxygen, but still feels very weak, and generally unsteady. She is concerned about discharging home because she does not have any assistance nearby Current Medications Current Medications Current Medications: Current Medications Generic Name Dose Route Start Last Admin Trade Name Freq PRN Reason Stop Dose Admin Acetaminophen 650 mg 08/15/24 23:36 08/17/24 08:13 Acetaminophen 325 Mg Tablet PO 650 mg Q4HR PRN Administration Pain 1 to 4, or Fever Albuterol 2.5 mg 08/17/24 08:16 Albuterol Neb 2.5 Mg/3 Ml INH Q2H PRN Wheezing Albuterol/Ipratropium 3 ml 08/17/24 11:00 08/17/24 16:11 Ipratropium/Albuterol 3 Ml Neb INH 3 ml RTQID MOLLY Administration Enoxaparin Sodium 40 mg 08/16/24 09:00 08/17/24 08:10 Enoxaparin 40 Mg/0.4 Ml Syringe SUBQ 40 mg DAILY MOLLY Administration Guaifenesin 1,200 mg 08/16/24 21:00 08/17/24 08:13 Guaifenesin 600 Mg Tablet PO 1,200 mg BID MOLLY Administration Hydroxyzine Pamoate 25 mg 08/16/24 07:37 08/16/24 19:57 Hydroxyzine Pamoate 25 Mg Capsule PO 25 mg TID PRN Administration Anxiety Azithromycin 500 mg/ Sodium 250 mls @ 250 mls/hr 08/16/24 00:30 08/17/24 01:10 Chloride IV Infused Q24H MOLLY Infusion Methylprednisolone 40 mg 08/15/24 23:45 08/17/24 11:29 Methylprednisolone Succinate 40 Mg/Ml Vial IVP 40 mg Q6H MOLLY Administration Montelukast Sodium 10 mg 08/16/24 00:30 08/16/24 21:06 Montelukast 10 Mg Tablet PO 10 mg QPM MOLLY Administration Nicotine 1 patch 08/16/24 09:00 08/17/24 08:09 Nicotine 21 Mg Patch TOP 1 patch DAILY MOLLY Administration Ondansetron HCl 4 mg 08/15/24 23:36 08/16/24 19:56 Ondansetron 4 Mg/2 Ml Vial IVP 4 mg Q6HR PRN Administration Nausea / Vomiting Polyethylene Glycol 17 gm 08/17/24 09:00 08/17/24 08:09 Polyethylene Glycol 3350 17 Gm Packet PO 17 gm DAILY MOLLY Administration Polyethylene Glycol 17 gm 08/16/24 18:00 08/16/24 18:16 Polyethylene Glycol 3350 17 Gm Packet PO 17 gm DAILY PRN Administration Bowel Protocol Sodium Chloride 10 ml 08/15/24 23:36 Sodium Chloride Flush 0.9% 10 Ml Syringe IVP PRN PRN NEEDED PER PROVIDER ORDERS Sodium Chloride 10 ml 08/16/24 01:00 08/17/24 08:10 Sodium Chloride Flush 0.9% 10 Ml Syringe IVP 10 ml 0100,0900,1700 MOLLY Administration Objective Vital Signs/Intake & Output Reviewed Vital Signs: Yes Vital Signs: Vital Signs x48h Temp Pulse Pulse Resp BP Pulse Ox O2 Flow Rate 08/17/24 16:12 1 08/17/24 16:12 83 22 08/17/24 15:38 37.1 C 90 22 140/79 H 92 08/17/24 10:40 82 22 Intake & Output: Intake & Output 08/14/24 08/15/24 08/16/24 08/17/24 23:59 23:59 23:59 23:59 Intake Total 950 / 950 970 / 970 Balance 950 / 950 970 / 970 Weight (kg) 70 kg Objective General Appearance: positive Anxious and Lethargic Eyes Bilateral: positive Normal inspection Neck: positive Nml inspection Respiratory: positive No respiratory distress and Breath sounds nml; negative Wheezes Cardiovascular: positive Regular rate & rhythm, No murmur and No gallop Abdomen: positive Non-tender, No organomegaly, Nml bowel sounds and No distention Skin: positive Color nml Extremities: positive Non-tender, Nml appearance and No pedal edema Neurologic/Psychiatric: positive Oriented x3, CN's nml (2-12) and Mood/affect nml Lab Results 08/17/24 04:11 08/17/24 04:11 Other Labs: Lab Results x24hrs 08/17/24 Range/Units 04:11 WBC 18.0 H (4.8-10.8) x10^3/uL RBC 4.46 (4.20-5.40) 10^6/uL Hgb 13.2 (12.0-16.0) g/dL Hct 41.4 (37.0-47.0) % MCV 92.8 (81.0-99.0) fL MCH 29.6 (27.0-31.0) pg MCHC 31.9 L (32.0-36.0) g/dL RDW 15.2 H (12.0-15.0) % Plt Count 282 (130-450) 10^3/uL MPV 11.6 H (7.9-10.8) fL Neut # (Auto) 15.9 H (1.5-6.6) 10^3/uL Lymph # (Auto) 1.0 L (1.5-3.5) 10^3/uL [place] # (Auto) 0.8 (0.0-1.0) 10^3/uL Eos # (Auto) 0.0 (0.0-0.7) 10^3/uL Baso # (Auto) 0.0 (0.0-0.1) 10^3/uL Absolute Nucleated RBC 0.00 x10^3/uL Nucleated RBC % 0.0 /100WBC Sodium 139 (135-145) mmol/L Potassium 4.7 H (3.5-4.5) mmol/L Chloride 108 (101-111) mmol/L Carbon Dioxide 26 (21-32) mmol/L Anion Gap 5.0 L (6-13) BUN 20 (6-20) mg/dL Creatinine 0.9 (0.6-1.3) mg/dL Estimated GFR (MDRD) 63 L (>89) Glucose 147 H (74-104) mg/dL Calcium 9.3 (8.5-10.3) mg/dL Diagnostic Imaging Diagnostic Imaging Results: positive Final report reviewed Assessment/Plan Problem List (1) COPD exacerbation: Impression: * Patient is improved, off oxygen or at times up to 1 L but still feeling dyspneic and generally weak * Offered patient discharge home but she feels unsteady about that, will keep her overnight and plan for probable discharge tomorrow * Continue methylprednisolone as ordered 40 mg every 6 hours * Continue montelukast * Continue guaifenesin * Continue DuoNebs
[2024-08-17] MEDS: guaiFENesin 600 MG TABLET PO SCH (17:28)
[2024-08-18 04:45] LABS: BASOPHILS % (AUTO) 0.1 %; HCT - HEMATOCRIT 41.1 % (37.0-47.0); HGB - HEMOGLOBIN 12.9 g/dL (12.0-16.0); LYMPHOCYTES # (AUTO) 1.2 10^3/uL (1.5-3.5); LYMPHOCYTES % (AUTO) 6.3 %; MEAN CORPUSCULAR HEMOGLOBIN 29.4 pg (27.0-31.0); MEAN CORPUSCULAR HGB CONC 31.4 g/dL (32.0-36.0); MEAN CORPUSCULAR VOLUME 93.6 fL (81.0-99.0); MEAN PLATELET VOLUME 11.7 fL (7.9-10.8); MONOCYTES % (AUTO) 5.1 %; NEUTROPHILS # (AUTO) 16.9 10^3/uL (1.5-6.6); NEUTROPHILS % (AUTO) 87.4 %; PLT - PLATELET COUNT 294 10^3/uL (130-450); RED BLOOD COUNT 4.39 10^6/uL (4.20-5.40); RED CELL DISTRIBUTION WIDTH 15.1 % (12.0-15.0); WHITE BLOOD COUNT 19.3 x10^3/uL (4.8-10.8)
[2024-08-18 05:06] LABS: CALCIUM 9.1 mg/dL (8.5-10.3); CREATININE 0.8 mg/dL (0.6-1.3); POTASSIUM 4.7 mmol/L (3.5-4.5)
[2024-08-18 07:53] VITALS: BP 146/78; TEMP 99; O2SAT 86
--- NOTE | 2024-08-18 09:08 | Discharge Summary ---
Discharge Summary Admit Date: 08/15/24 Discharge Date: 08/18/24 Discharging Provider: Casey Jordan MD Code Status: Attempt Resuscitation DIAGNOSES Admission Diagnoses: Acute hypoxic respiratory failure COPD exacerbation Leukocytosis HTN GERD Tobacco abuse Discharge Diagnoses with Status of Each Condition: Acute hypoxic respiratory failure - Improved COPD exacerbation - Improved Leukocytosis - Improved HTN - Stable GERD - Stable Tobacco abuse - Unchanged HPI History of Present Illness: 64 Y old female with PMH HTN, GERD, COPD, TObbaco abuse BIBA due to SOB for 2 days. C/O cough with sputum, wheezing. Denies fever, chest pain, SMALL, abdominal pain, nausea, vomiting, diarrhea, constipation, symptoms Pt was given IV solumedrol,, nebs by EMS CXR showed no acute findings Pt is admitted due to Acute hypoxic respiratory failure due to COPD exacerbation HOSPITAL COURSE Hospital Course: Patient was admitted to the medical floor and started on Solu-Medrol 40 mg IV every 6 hours. She was also started on DuoNebs every 6 hours scheduled and Zithromax 500 mg daily for COPD exacerbation. She was also started on Singulair 10 mg daily and the remainder of her home medications. Her oxygen requirement was initially 7 L but it rapidly improved and she was managed on between 2 to 3 L of oxygen through the duration of her hospital stay. Within 24 hours prior to discharge she was mostly on room air with the occasional desaturation to high 80s prompting nursing staff to place her back on oxygen. On the morning of discharge however she was saturating 93 to 94% on room air and very eager to go home. ALLERGIES Allergies Allergy/AdvReac Type Severity Reaction Status Date / Time Sulfa (Sulfonamide Allergy Unknown Unknown Verified 08/15/24 21:48 Antibiotics) MEDICATIONS Ambulatory Orders Medication Instructions Recorded Confirmed albuterol sulfate 90 mcg/actuation 2 puff inhalation Q 4H PRN wheezing 08/16/24 08/16/24 aerosol inhaler amlodipine 10 mg tablet 10 mg PO DAILY 08/16/2408/02 estradiol 1 mg tablet 1 mg PO DAILY PRN anxiety 08/16/24 ipratropium 0.5 mg-albuterol 3 mg 3 ml inhalation .COM PLEX 08/16/24 08/16/24 (2.5 mg base)/3 mL nebulization soln omeprazole 40 mg capsule,delayed 40 mg PO QDAC 5 08/16/24 release fluticasone 500 mcg-salmeterol 50 1 inh inhalation BID #60 ea 08/18/24 mcg/dose blistr powdr for inhalation (Advair Diskus) guaifenesin 600 mg tablet, 1,200 mg (2 x 600 mg) PO BI D #20 08/18/24 extended release 12 hr (Mucinex) tabs montelukast 10 mg tablet 10 mg PO QPM #90 tabs nicotine 21 mg/24 hr daily 1 patch topical DAILY #7 ea 08/18/24 transdermal patch PHYSICAL EXAM AT DISCHARGE Vital Signs: Vital Signs x48h Temp Pulse Pulse Resp BP Pulse Ox O2 Flow Rate 08/18/24 07:51 37.2 C 20 146/78 H 86 L 08/18/24 07:06 84 22 1 08/18/24 07:05 1 08/18/24 04:16 37.1 C 85 18 123/68 96 1 General Appearance: positive No acute distress and Alert Respiratory: positive No respiratory distress and Wheezes Cardiovascular: positive Regular rate & rhythm, No murmur and No gallop Abdomen: positive Non-tender, No organomegaly, Nml bowel sounds and No distention Skin: positive Color nml Extremities: positive Nml appearance Neurologic/Psychiatric: positive Oriented x3, CN's nml (2-12) and Motor nml LABS 08/18/24 04:16 08/18/24 04:16 DIAGNOSTIC IMAGING Diagnostic Imaging Results: Final report reviewed TIME SPENT Time Spent in Discharge (Minutes): 36 Discharge Plan Discharge Patient Disposition: 01 Home, Self Care Condition: Good Medically Cleared Date:: 08/18/24 Prescriptions: New guaifenesin [Mucinex] 600 mg Tablet Extended Release 12hr 1,200 mg PO BID Qty: 20 0RF nicotine 21 mg/24 hr Patch 24 Hour 1 patch topical DAILY Qty: 7 0RF montelukast 10 mg Tablet 10 mg PO QPM Qty: 90 0RF fluticasone propion-salmeterol [Advair Diskus] 500-50 mcg/dose blister with device 1 inh inhalation BID Qty: 60 1RF Continued ipratropium-albuterol 0.5 mg-3 mg(2.5 mg base)/3 mL solution for nebulization 3 ml INHALATION .COMPLEX Rx Instructions: 3 mL inhaled 3 to 4 times per day; omeprazole 40 mg capsule,delayed release(DR/EC) 40 mg PO QDAC estradiol 1 mg tablet 1 mg PO DAILY PRN (Reason: anxiety) Patient Comments: she takes when needed for anxiety. about every other day or so. amlodipine 10 mg tablet 10 mg PO DAILY albuterol sulfate 90 mcg/actuation HFA aerosol inhaler 2 puff INHALATION Q4H PRN (Reason: wheezing) Patient Comments: INHALE TWO PUFFS BY MOUTH EVERY FOUR HOURS NEEDED FOR WHEEZING Discontinued fluticasone propion-salmeterol 250-50 mcg/dose blister with device 1 inh INHALATION BID Patient Comments: INHALE ONE PUFF BY MOUTH TWICE DAILY Activity Restrictions: Activity as Tolerated Diet: Regular Health Concerns: August, you were admitted for a COPD exacerbation which is basically when your longstanding lung disease called COPD goes into a flareup. The way we usually treat this is with oxygen as needed until you no longer needed, as well as a few days of steroids and an antibiotic called azithromycin. We use the antibiotic not because we suspect an infection, because in this case it did not appear that you had 1, but because it has anti-inflammatory properties. We gave you steroids in the IV, and I think you had a sufficient amount while in the hospital so you will not need a prescription for any more of this or the antibiotic. However, I do think you would benefit from inhaled steroids so I am going to send you a prescription for Advair at an increased dose from the 1 you are using before. This new 1 will be 500/50 and I would like you to use this twice daily every day for the time being. You may follow-up with your PCP and at some point they may decide to either go down on a lower dose, or take breaks from using it, but on the other hand it seems like you may benefit from using it indefinitely. As far as oxygen is concerned, your oxygen levels improved throughout your hospital stay. On the morning that we discharged you, the respiratory therapist performed what is called a desaturation screening survey which means we try to determine if you need home oxygen therapy. Based on your oxygen levels that were above 90%, it appears you do not. This is good news and I am hoping that in time your oxygen levels will improve even further. 1 thing to keep in mind, is for patients with COPD, we do not necessarily want to strive for very high numbers of oxygen saturation like 98 to 100%. People with COPD can actually get worse if their oxygen levels are too high. The reason for this is because high oxygen levels can lead to increasing buildup of CO2 in the bloodstream. So for now, no oxygen is needed, and I anticipate that with the new inhaler, hopefully your symptoms will improve. Also, with respect to the albuterol, remember, the idea with this inhaler is to be used as a rescue inhaler. Feel free to use it as often this you think you need it however if you find yourself needing it more than a few times per week, this may mean your COPD is not well-controlled and I would like you to follow-up with your PCP and/or lung specialist if you have one. Print Language: Indonesian Patient Instructions: COPD Quit Smoking, COPD: Using Inhalers Stand Alone Forms: PCP List Follow-up Care: Eliane Cedillo ARNP [Primary Care Provider] -
== END 2024-08-18 13:25 | disposition home or self-care (01) | DRG 189 ==
LOC: ED 21:41 → MS2 23:01
PROVIDERS: ADMIT Internal Medicine; ATTEND Internal Medicine
DX: J96.01 Acute respiratory failure with hypoxia; D72.829 Elevated white blood cell count, unspecified; K21.9 Gastro-esophageal reflux disease without esophagitis; I10 Essential (primary) hypertension; F17.210 Nicotine dependence, cigarettes, uncomplicated; J44.1 Chronic obstructive pulmonary disease with (acute) exacerbation